=== PATIENT | male | born 1955 | race Caucasian/White ===

== ENCOUNTER 2018-10-30 12:23 | Inpatient (IN) | payer MEDICARE, MEDICAID ==
[~2018-10-30 12:23] MED LIST: AMLO-511 PO; CLON0.1P2 TD; LEVO100T4 PO; QUET100T PO; RISP1 PO; RISP2 PO; TRAZ150T79 PO; VIT500TA PO; ZINC220T PO
[2018-10-30 15:00] VITALS: BP 122/79
[2018-10-30] MEDS ORDERED: HALOPERIDOL 5 MG TABLET PO PRN (15:15)
[2018-10-30] MEDS ORDERED: ZOLPIDEM TARTRATE 10 MG TABLET PO PRN (15:15)
[2018-10-30] MEDS ORDERED: LISI-662 PO (15:42)
[2018-10-30] MEDS ORDERED: CITA-106 PO (15:42)
[2018-10-30] MEDS ORDERED: ARIP5TAB8 PO (15:42)
[2018-10-30] MEDS ORDERED: LEVO125 PO (15:42)
[2018-10-30] MEDS ORDERED: HYDR25TA PO (15:42)
[2018-10-30 21:41] VITALS: BP 127/85
[2018-10-31 00:13] VITALS: BP 125/66
[2018-10-31] MEDS: LEVOTHYROXINE SODIUM 125 MCG TABLET PO SCH (06:53)
[2018-10-31 08:20] VITALS: BP 132/90
[2018-10-31] MEDS: CITALOPRAM HYDROBROMIDE 20 MG TABLET PO SCH (08:58)
[2018-10-31] MEDS: HYDROCHLOROTHIAZIDE 25 MG TABLET PO SCH (08:58)
[2018-10-31] MEDS: LISINOPRIL 20 MG TABLET PO SCH (08:58)
[2018-10-31] MEDS: ARIPiprazole 5 MG TABLET PO SCH (08:58)
[2018-10-31] MEDS ORDERED: SIMETHICONE 80 MG CHEWABLE TABLET CHEW PRN (10:45)
[2018-10-31 16:00] VITALS: BP 135/85
[2018-11-01] MEDS: LEVOTHYROXINE SODIUM 125 MCG TABLET PO SCH (06:41)
[2018-11-01] MEDS: ARIPiprazole 5 MG TABLET PO SCH (08:59)
[2018-11-01] MEDS: CITALOPRAM HYDROBROMIDE 20 MG TABLET PO SCH (08:59)
[2018-11-01] MEDS: HYDROCHLOROTHIAZIDE 25 MG TABLET PO SCH (09:00)
[2018-11-01] MEDS: LISINOPRIL 20 MG TABLET PO SCH (09:00)
[2018-11-01] MEDS ORDERED: IBUPROFEN 600 MG TABLET PO PRN (12:15)
[2018-11-01] MEDS ORDERED: ACETAMINOPHEN 325 MG TABLET PO PRN (12:15)
[2018-11-01 16:15] VITALS: BP 132/81
[2018-11-02 03:01] VITALS: BP 133/85
[2018-11-02] MEDS: LORazepam 2 MG TABLET PO PRN ×2 (04:17→08:27)
[2018-11-02] MEDS: LEVOTHYROXINE SODIUM 125 MCG TABLET PO SCH (06:57)
[2018-11-02] MEDS: LISINOPRIL 20 MG TABLET PO SCH (08:15)
[2018-11-02] MEDS: CITALOPRAM HYDROBROMIDE 20 MG TABLET PO SCH (08:15)
[2018-11-02] MEDS: HYDROCHLOROTHIAZIDE 25 MG TABLET PO SCH (08:15)
[2018-11-02] MEDS: ARIPiprazole 5 MG TABLET PO SCH (08:15)
[2018-11-02 08:20] VITALS: BP 135/83
[2018-11-03] MEDS ORDERED: ASPIRIN 81 MG EC TABLET PO SCH (09:00)
== END 2018-11-02 14:17 | disposition home or self-care (01) | DRG 885 ==
LOC: B2X 15:07
PROVIDERS: ADMIT Psychiatry & Neurology Child & Adolescent Psychiatry; ATTEND Psychiatry & Neurology Psychiatry
DX: F25.0 Schizoaffective disorder, bipolar type (principal); R45.851 Suicidal ideations; E03.9 Hypothyroidism, unspecified; F10.20 Alcohol dependence, uncomplicated; I10 Essential (primary) hypertension; I25.10 Atherosclerotic heart disease of native coronary artery without angina pectoris; L21.9 Seborrheic dermatitis, unspecified; L40.9 Psoriasis, unspecified; F15.10 Other stimulant abuse, uncomplicated; F12.10 Cannabis abuse, uncomplicated; Z59.0 Homelessness; Z80.8 Family history of malignant neoplasm of other organs or systems; Z95.5 Presence of coronary angioplasty implant and graft

== ENCOUNTER 2019-09-23 09:01 | Inpatient (IN) | payer MEDICAID, MEDICARE, OTHER ==
[~2019-09-23] VITALS: Ht 188 cm; Wt 110.0 kg
[~2019-09-23 09:01] MED LIST changes: -AMLO-511 PO; +ARIP5TAB8 PO; +CITA-106 PO; -CLON0.1P2 TD; +HYDR-1475 PO; -LEVO100T4 PO; +LEVO125 PO; +LISI-662 PO; -QUET100T PO; -RISP1 PO; -RISP2 PO; -TRAZ150T79 PO; -VIT500TA PO; -ZINC220T PO
[2019-09-23 09:51] LABS: BASOPHILS % (AUTO) 0.4 % (0.0-2.0); EOSINOPHILS % (AUTO) 0.7 % (1.0-6.0); HEMATOCRIT 41.1 % (41-53); HEMOGLOBIN 14.3 g/dL (13.5-17.5); LYMPHOCYTES # (AUTO) 0.8 K/uL (1.0-4.8); LYMPHOCYTES % (AUTO) 7.8 % (22.0-44.0); MEAN CORPUSCULAR HEMOGLOBIN 31.5 pg (26.0-34.0); MEAN CORPUSCULAR HGB CONC 34.8 G/dL (31.0-37.0); MEAN CORPUSCULAR VOLUME 90 fL (80-100); MONOCYTES # (AUTO) 0.9 K/uL (0.1-1.0); MONOCYTES % (AUTO) 7.9 % (2.0-9.0); NEUTROPHILS % (AUTO) 83.2 % (40.0-70.0); PLATELET COUNT (AUTO) 250 K/uL (150-450); RED BLOOD CELL COUNT(AUTO) 4.55 MIL/uL (4.50-5.90); RED CELL DISTRIBUTION WIDTH 12.6 % (11.5-14.5)
[2019-09-23] MEDS ORDERED: ACETAMINOPHEN 325 MG TABLET PO PRN (10:00)
[2019-09-23 10:01] LABS: ANION GAP 8 mmol/L (8-16); CALCIUM, TOTAL 8.5 mg/dL (8.8-10.5); CARBON DIOXIDE 26 mmol/L (22-29); CHLORIDE 101 mmol/L (98-107); CREATININE 1.27 mg/dL (0.60-1.30); GLOMERULAR FILTR. RATE CALC 57 mL/min (>60); GLUCOSE,RANDOM 82 mg/dL (70-110); POTASSIUM 3.4 mmol/L (3.5-5.1); SODIUM SERUM 135 mmol/L (136-145); UREA NITROGEN, BLOOD 10 mg/dL (7-18)
[2019-09-23 10:06] LABS: ALANINE AMINOTRANSFERASE 28 U/L (12-78); ALBUMIN 3.6 g/dL (3.4-5.0); ALKALINE PHOSPHATASE 71 U/L (46-116); ASPARTATE AMINOTRANSFERASE 46 U/L (15-37); BILIRUBIN,TOTAL 1.3 mg/dL (0.1-1.0); TOTAL PROTEIN, SERUM 6.7 g/dL (6.4-8.2)
[2019-09-23] MEDS ORDERED: POTASSIUM CHLORIDE 10 MEQ ER TABLET PO ONE (11:00)
[2019-09-23] MEDS ORDERED: MAGNESIUM HYDROXIDE SUSPENSION 30 ML UDCUP PO PRN (11:00)
[2019-09-23] MEDS ORDERED: INFLUENZA VIRUS VACCINE QVS 2019-20 (3YR+)/PF 60 MCG/0.5 ML SYRINGE IM ONE (11:45)
[2019-09-23 12:10] LABS: THYROID STIMULATING HORMONE 1.63 uIU/mL (0.36-3.74)
[2019-09-23] MEDS: ASPIRIN 81 MG CHEWABLE TABLET PO SCH (12:30)
[2019-09-23 12:33] LABS: AMPHET/METH SCREEN,URINE NEGATIVE (NEGATIVE); BARBITURATE SCREEN, URINE NEGATIVE (NEGATIVE); BENZODIAZEPINES SCREEN,URINE NEGATIVE (NEGATIVE); CANNABINOID SCREEN,URINE NEGATIVE (NEGATIVE); COCAINE SCREEN,URINE NEGATIVE (NEGATIVE); METHADONE SCREEN, URINE NEGATIVE (NEGATIVE); OPIATE SCREEN,URINE NEGATIVE (NEGATIVE)
[2019-09-23 12:35] LABS: PHENCYCLIDINE SCREEN,URINE NEGATIVE (NEGATIVE)
[2019-09-23 13:26] LABS: AMPHET/METH SCREEN,URINE NEGATIVE (NEGATIVE); BARBITURATE SCREEN, URINE NEGATIVE (NEGATIVE); BENZODIAZEPINES SCREEN,URINE NEGATIVE (NEGATIVE); CANNABINOID SCREEN,URINE NEGATIVE (NEGATIVE); COCAINE SCREEN,URINE NEGATIVE (NEGATIVE); METHADONE SCREEN, URINE NEGATIVE (NEGATIVE); OPIATE SCREEN,URINE NEGATIVE (NEGATIVE); PHENCYCLIDINE SCREEN,URINE NEGATIVE (NEGATIVE)
[2019-09-23 15:04] VITALS: BP 120/75
[2019-09-23] MEDS ORDERED: HALOPERIDOL LACTATE 5 MG/ML VIAL IM ONE (16:15)
[2019-09-23] MEDS ORDERED: DiphenhydrAMINE HCL 50 MG/ML VIAL IM ONE (16:15)
[2019-09-23] MEDS ORDERED: LORazepam 2 MG/ML VIAL IM ONE (16:15)
[2019-09-23] MEDS ORDERED: HALOPERIDOL 5 MG TABLET PO PRN (16:30)
[2019-09-23] MEDS: OLANZapine 5 MG TABLET PO SCH (20:55)
[2019-09-24 05:25] VITALS: BP 125/82
[2019-09-24 07:17] LABS: ANION GAP 8 mmol/L (8-16); CALCIUM, TOTAL 8.4 mg/dL (8.8-10.5); CARBON DIOXIDE 26 mmol/L (22-29); CHLORIDE 105 mmol/L (98-107); CREATININE 1.05 mg/dL (0.60-1.30); GLOMERULAR FILTR. RATE CALC > 60 mL/min (>60); GLUCOSE,RANDOM 70 mg/dL (70-110); POTASSIUM 3.7 mmol/L (3.5-5.1); SODIUM SERUM 139 mmol/L (136-145); UREA NITROGEN, BLOOD 12 mg/dL (7-18)
[2019-09-24 07:25] VITALS: BP 97/66
[2019-09-24] MEDS: CITALOPRAM HYDROBROMIDE 10 MG TABLET PO SCH (09:08)
[2019-09-24] MEDS: FAMOTIDINE 20 MG TABLET PO SCH (09:08)
[2019-09-24] MEDS: ASPIRIN 81 MG CHEWABLE TABLET PO SCH (09:08)
[2019-09-24] MEDS ORDERED: LORazepam 2 MG/ML VIAL IM ONE (15:15)
[2019-09-24] MEDS ORDERED: DiphenhydrAMINE HCL 50 MG/ML VIAL IM ONE (15:15)
[2019-09-24] MEDS ORDERED: HALOPERIDOL LACTATE 5 MG/ML VIAL IM ONE (15:15)
[2019-09-24] MEDS: LEVOTHYROXINE SODIUM 125 MCG TABLET PO SCH (16:42)
[2019-09-24] MEDS: ACETAMINOPHEN 325 MG TABLET PO PRN (16:51)
[2019-09-24] MEDS: OLANZapine 5 MG TABLET PO SCH (21:00)
[2019-09-25] MEDS: OLANZapine 5 MG TABLET PO SCH ×3 (00:43→20:36)
[2019-09-25 07:50] VITALS: BP 120/74
[2019-09-25] MEDS: FAMOTIDINE 20 MG TABLET PO SCH (07:53)
[2019-09-25] MEDS: LEVOTHYROXINE SODIUM 125 MCG TABLET PO SCH (07:53)
[2019-09-25] MEDS: ASPIRIN 81 MG CHEWABLE TABLET PO SCH (07:54)
[2019-09-25] MEDS: CITALOPRAM HYDROBROMIDE 10 MG TABLET PO SCH (07:54)
[2019-09-25 12:00] VITALS: BP 119/56
[2019-09-25 16:17] VITALS: BP 122/68
[2019-09-25] MEDS ORDERED: HALOPERIDOL LACTATE 5 MG/ML VIAL ONE (17:24)
[2019-09-25] MEDS ORDERED: DiphenhydrAMINE HCL 50 MG/ML VIAL ONE (17:25)
[2019-09-25] MEDS ORDERED: LORazepam 2 MG/ML VIAL ONE (17:25)
[2019-09-25] MEDS ORDERED: DiphenhydrAMINE HCL 50 MG/ML VIAL IM ONE (17:30)
[2019-09-25] MEDS ORDERED: LORazepam 2 MG/ML VIAL IM ONE (17:30)
[2019-09-25] MEDS ORDERED: HALOPERIDOL LACTATE 5 MG/ML VIAL IM ONE (17:30)
[2019-09-25 20:42] VITALS: BP 120/79
[2019-09-26] MEDS: LEVOTHYROXINE SODIUM 125 MCG TABLET PO SCH (06:33)
[2019-09-26] MEDS: ASPIRIN 81 MG CHEWABLE TABLET PO SCH (08:19)
[2019-09-26] MEDS: CITALOPRAM HYDROBROMIDE 10 MG TABLET PO SCH (08:19)
[2019-09-26] MEDS: OLANZapine 5 MG TABLET PO SCH (08:19)
[2019-09-26] MEDS: FAMOTIDINE 20 MG TABLET PO SCH (08:19)
[2019-09-26] MEDS: ACETAMINOPHEN 325 MG TABLET PO PRN (08:21)
[2019-09-26] MEDS ORDERED: OLAN5TAB2 PO (12:21)
[2019-09-26 15:43] VITALS: BP 119/67
[2019-09-26] MEDS ORDERED: ASPI-728 PO (15:53)
[2019-09-26] MEDS ORDERED: FAMO20 PO (15:55)
[2019-09-26] MEDS ORDERED: CITA10TA68 PO (15:55)
== END 2019-09-26 18:15 | DRG 885 ==
LOC: EMS 09:04 → 6S 10:19
PROVIDERS: ADMIT Internal Medicine; ATTEND Internal Medicine
DX: F31.64 Bipolar disorder, current episode mixed, severe, with psychotic features (principal); F19.10 Other psychoactive substance abuse, uncomplicated; F17.210 Nicotine dependence, cigarettes, uncomplicated; F15.90 Other stimulant use, unspecified, uncomplicated; F12.90 Cannabis use, unspecified, uncomplicated; I25.10 Atherosclerotic heart disease of native coronary artery without angina pectoris; E03.9 Hypothyroidism, unspecified; I10 Essential (primary) hypertension; B35.1 Tinea unguium; E87.6 Hypokalemia; Z59.0 Homelessness; Z28.21 Immunization not carried out because of patient refusal
CPT/HCPCS: 80307; 84443; 96372; G0480; J1200; J1630; J2060

== ENCOUNTER 2019-10-03 11:53 | Inpatient (IN) | payer OTHER ==
[~2019-10-03] VITALS: Ht 177.8 cm; Wt 81.8 kg
[~2019-10-03 11:53] MED LIST changes: -ARIP5TAB8 PO; +ASPI-728 PO; -CITA-106 PO; +CITA10TA68 PO; +FAMO20 PO; -HYDR-1475 PO; -LISI-662 PO; +OLAN5TAB2 PO
[2019-10-03] MEDS ORDERED: DiphenhydrAMINE HCL 50 MG/ML VIAL IM ONE (12:00)
[2019-10-03] MEDS ORDERED: LORazepam 2 MG/ML VIAL IM ONE (12:00)
[2019-10-03] MEDS ORDERED: HALOPERIDOL LACTATE 5 MG/ML VIAL IM ONE (12:00)
[2019-10-03] MEDS ORDERED: HYDR-1475 PO (12:11)
[2019-10-03] MEDS ORDERED: IBUP-2070 PO (12:11)
[2019-10-03] MEDS ORDERED: LISI-662 PO (12:11)
[2019-10-03 12:33] LABS: BASOPHILS % (AUTO) 0.2 % (0.0-2.0); EOSINOPHILS % (AUTO) 0.1 % (1.0-6.0); HEMATOCRIT 45.5 % (41-53); HEMOGLOBIN 15.2 g/dL (13.5-17.5); LYMPHOCYTES # (AUTO) 0.5 K/uL (1.0-4.8); LYMPHOCYTES % (AUTO) 3.5 % (22.0-44.0); MEAN CORPUSCULAR HEMOGLOBIN 30.5 pg (26.0-34.0); MEAN CORPUSCULAR HGB CONC 33.5 G/dL (31.0-37.0); MEAN CORPUSCULAR VOLUME 91 fL (80-100); MONOCYTES # (AUTO) 0.7 K/uL (0.1-1.0); MONOCYTES % (AUTO) 5.4 % (2.0-9.0); NEUTROPHILS # (AUTO) 12.4 K/uL (1.8-7.7); PLATELET COUNT (AUTO) 294 K/uL (150-450); RED BLOOD CELL COUNT(AUTO) 4.99 MIL/uL (4.50-5.90); RED CELL DISTRIBUTION WIDTH 12.6 % (11.5-14.5)
[2019-10-03 12:37] LABS: NEUTROPHILS % (AUTO) 90.8 % (40.0-70.0)
[2019-10-03 13:02] LABS: ALANINE AMINOTRANSFERASE 36 U/L (12-78); ALBUMIN 3.8 g/dL (3.4-5.0); ALKALINE PHOSPHATASE 76 U/L (46-116); ANION GAP 18 mmol/L (8-16); ASPARTATE AMINOTRANSFERASE 43 U/L (15-37); BILIRUBIN,TOTAL 2.2 mg/dL (0.1-1.0); CALCIUM, TOTAL 9.1 mg/dL (8.8-10.5); CARBON DIOXIDE 17 mmol/L (22-29); CHLORIDE 96 mmol/L (98-107); GLUCOSE,RANDOM 85 mg/dL (70-110); SODIUM SERUM 131 mmol/L (136-145); TOTAL PROTEIN, SERUM 7.6 g/dL (6.4-8.2); UREA NITROGEN, BLOOD 20 mg/dL (7-18)
[2019-10-03 13:13] LABS: CREATININE 1.62 mg/dL (0.60-1.30); GLOMERULAR FILTR. RATE CALC 43 mL/min (>60)
[2019-10-03] MEDS ORDERED: ACETAMINOPHEN 325 MG TABLET PO PRN (13:30)
[2019-10-03] MEDS ORDERED: 0.9% SODIUM CHLORIDE 10 ML SYRINGE IVP PRN ×2 (13:30→22:00)
[2019-10-03 16:29] VITALS: BP 131/87
[2019-10-03] MEDS ORDERED: ONDANSETRON HCL 4 MG/2 ML VIAL IVP PRN (22:00)
[2019-10-03] MEDS ORDERED: ZOLPIDEM TARTRATE 5 MG TABLET PO PRN (22:00)
[2019-10-03] MEDS ORDERED: MAGNESIUM SULFATE 2 GM/WATER 50 ML IV PRN (22:00)
[2019-10-03] MEDS: OLANZapine 10 MG TABLET PO SCH (22:00)
[2019-10-03] MEDS ORDERED: POTASSIUM CHLORIDE 20 MEQ ER TABLET PO PRN (22:00)
[2019-10-03] MEDS ORDERED: POTASSIUM CHL 10 MEQ/WATER 50 ML IV PRN (22:00)
[2019-10-03] MEDS ORDERED: DEXTROSE 50%-WATER 25 GM/50 ML SYRINGE IVP PRN (22:00)
[2019-10-03] MEDS ORDERED: MAGNESIUM SULFATE 4 GM/WATER 100 ML IV PRN (22:00)
[2019-10-03] MEDS ORDERED: MAGNESIUM OXIDE 400 MG TABLET PO PRN (22:00)
[2019-10-03] MEDS: HEPARIN SODIUM,PORCINE 5,000 UNITS/ML VIAL SQ SCH (23:10)
[2019-10-04 05:12] VITALS: BP 123/78
[2019-10-04] MEDS: LEVOTHYROXINE SODIUM 125 MCG TABLET PO SCH (06:41)
[2019-10-04] MEDS: IBUPROFEN 600 MG TABLET PO PRN (07:04)
[2019-10-04 07:40] LABS: GLUCOMETER DEV NAME(LOC) 6S.1; GLUCOSE,POINT OF CARE 79 MG/DL (70-110)
[2019-10-04 07:44] VITALS: BP 157/84
[2019-10-04] MEDS: HEPARIN SODIUM,PORCINE 5,000 UNITS/ML VIAL SQ SCH ×3 (08:00→23:24)
[2019-10-04] MEDS: HYDROCHLOROTHIAZIDE 25 MG TABLET PO SCH (09:00)
[2019-10-04] MEDS: ASPIRIN 81 MG CHEWABLE TABLET PO SCH (09:00)
[2019-10-04] MEDS: PANTOPRAZOLE SODIUM 40 MG DR TABLET PO SCH (09:00)
[2019-10-04] MEDS: LISINOPRIL 20 MG TABLET PO SCH (09:00)
[2019-10-04] MEDS: DOCUSATE SODIUM 100 MG CAPSULE PO SCH ×2 (09:00→20:35)
[2019-10-04 19:39] VITALS: BP 120/63
[2019-10-04] MEDS: OLANZapine 10 MG TABLET PO SCH (20:35)
[2019-10-04 20:52] LABS: GLUCOMETER DEV NAME(LOC) 6S.1; GLUCOSE,POINT OF CARE 128 MG/DL (70-110)
[2019-10-04 20:52] LABS: GLUCOMETER DEV NAME(LOC) 6S.1; GLUCOSE,POINT OF CARE 88 MG/DL (70-110)
[2019-10-05 03:54] VITALS: BP 120/78
[2019-10-05] MEDS: LEVOTHYROXINE SODIUM 125 MCG TABLET PO SCH (06:41)
[2019-10-05 06:59] LABS: GLUCOMETER DEV NAME(LOC) 6N.2; GLUCOSE,POINT OF CARE 96 MG/DL (70-110)
[2019-10-05 07:12] LABS: AMPHET/METH SCREEN,URINE NEGATIVE (NEGATIVE); BARBITURATE SCREEN, URINE NEGATIVE (NEGATIVE); BENZODIAZEPINES SCREEN,URINE NEGATIVE (NEGATIVE); CANNABINOID SCREEN,URINE NEGATIVE (NEGATIVE); COCAINE SCREEN,URINE NEGATIVE (NEGATIVE); METHADONE SCREEN, URINE NEGATIVE (NEGATIVE); OPIATE SCREEN,URINE NEGATIVE (NEGATIVE)
[2019-10-05 07:22] LABS: PHENCYCLIDINE SCREEN,URINE NEGATIVE (NEGATIVE)
[2019-10-05] MEDS: HEPARIN SODIUM,PORCINE 5,000 UNITS/ML VIAL SQ SCH ×2 (08:00→16:00)
[2019-10-05 08:25] VITALS: BP 119/69
[2019-10-05] MEDS: ASPIRIN 81 MG CHEWABLE TABLET PO SCH (08:30)
[2019-10-05] MEDS: HYDROCHLOROTHIAZIDE 25 MG TABLET PO SCH (08:30)
[2019-10-05] MEDS: PANTOPRAZOLE SODIUM 40 MG DR TABLET PO SCH (08:30)
[2019-10-05] MEDS: LISINOPRIL 20 MG TABLET PO SCH (08:30)
[2019-10-05] MEDS: DOCUSATE SODIUM 100 MG CAPSULE PO SCH ×2 (08:34→21:00)
[2019-10-05] MEDS: INSULIN LISPRO 100 UNITS/ML SQ PRN ×2 (11:45→18:08)
[2019-10-05 11:59] LABS: GLUCOMETER DEV NAME(LOC) 6N.2; GLUCOSE,POINT OF CARE 121 MG/DL (70-110)
[2019-10-05] MEDS ORDERED: LORazepam 2 MG/ML VIAL ONE (16:08)
[2019-10-05] MEDS ORDERED: HALOPERIDOL LACTATE 5 MG/ML VIAL ONE (16:08)
[2019-10-05] MEDS ORDERED: DiphenhydrAMINE HCL 50 MG/ML VIAL ONE (16:08)
[2019-10-05] MEDS ORDERED: OLAN10TA3 PO (16:14)
[2019-10-05] MEDS ORDERED: HALOPERIDOL LACTATE 5 MG/ML VIAL IM ONE (16:15)
[2019-10-05] MEDS ORDERED: DiphenhydrAMINE HCL 50 MG/ML VIAL IM ONE (16:15)
[2019-10-05] MEDS ORDERED: LORazepam 2 MG/ML VIAL IM ONE (16:15)
[2019-10-05] MEDS: OLANZapine 10 MG TABLET PO SCH (21:00)
[2019-10-05] MEDS: ACETAMINOPHEN 325 MG TABLET PO PRN (23:03)
[2019-10-06 01:10] VITALS: BP 130/82
[2019-10-06] MEDS: HEPARIN SODIUM,PORCINE 5,000 UNITS/ML VIAL SQ SCH ×2 (08:00)
[2019-10-06] MEDS: PANTOPRAZOLE SODIUM 40 MG DR TABLET PO SCH (08:12)
[2019-10-06] MEDS: ACETAMINOPHEN 325 MG TABLET PO PRN (08:12)
[2019-10-06] MEDS: LISINOPRIL 20 MG TABLET PO SCH (08:12)
[2019-10-06] MEDS: HYDROCHLOROTHIAZIDE 25 MG TABLET PO SCH (08:13)
[2019-10-06] MEDS: ASPIRIN 81 MG CHEWABLE TABLET PO SCH (08:13)
[2019-10-06] MEDS: LEVOTHYROXINE SODIUM 125 MCG TABLET PO SCH (08:13)
[2019-10-06] MEDS: DOCUSATE SODIUM 100 MG CAPSULE PO SCH (08:14)
[2019-10-06] MEDS ORDERED: PANT40TA25 PO (09:52)
[2019-10-06] MEDS: IBUPROFEN 600 MG TABLET PO PRN (10:53)
== END 2019-10-06 13:30 | DRG 885 ==
LOC: EMS 11:54 → 6S 14:08
PROVIDERS: ADMIT Hospitalist; ATTEND Hospitalist
DX: F31.64 Bipolar disorder, current episode mixed, severe, with psychotic features (principal); E03.9 Hypothyroidism, unspecified; I10 Essential (primary) hypertension; I25.10 Atherosclerotic heart disease of native coronary artery without angina pectoris; F17.210 Nicotine dependence, cigarettes, uncomplicated; F10.20 Alcohol dependence, uncomplicated; L40.9 Psoriasis, unspecified; F12.90 Cannabis use, unspecified, uncomplicated; Z59.0 Homelessness
CPT/HCPCS: 71101; 96372; 99291; G0480; J1200; J1630; J1644; J2060

== ENCOUNTER 2019-10-15 18:21 | Inpatient (IN) | payer OTHER ==
[~2019-10-15] VITALS: Ht 190.5 cm; Wt 107.5 kg
[~2019-10-15 18:21] MED LIST changes: -CITA10TA68 PO; -FAMO20 PO; +HYDR-1475 PO; +IBUP-2070 PO; +LISI-662 PO; +OLAN10TA3 PO; -OLAN5TAB2 PO; +PANT40TA25 PO
[2019-10-15 18:42] LABS: BASOPHILS % (AUTO) 0.4 % (0.0-2.0); EOSINOPHILS % (AUTO) 7.9 % (1.0-6.0); HEMATOCRIT 41.7 % (41-53); HEMOGLOBIN 14.2 g/dL (13.5-17.5); LYMPHOCYTES # (AUTO) 1.1 K/uL (1.0-4.8); LYMPHOCYTES % (AUTO) 10.5 % (22.0-44.0); MEAN CORPUSCULAR HEMOGLOBIN 30.3 pg (26.0-34.0); MEAN CORPUSCULAR VOLUME 89 fL (80-100); MONOCYTES # (AUTO) 0.8 K/uL (0.1-1.0); MONOCYTES % (AUTO) 8.1 % (2.0-9.0); NEUTROPHILS # (AUTO) 7.4 K/uL (1.8-7.7); NEUTROPHILS % (AUTO) 73.1 % (40.0-70.0); PLATELET COUNT (AUTO) 433 K/uL (150-450); RED BLOOD CELL COUNT(AUTO) 4.67 MIL/uL (4.50-5.90); RED CELL DISTRIBUTION WIDTH 12.7 % (11.5-14.5)
[2019-10-15 18:51] LABS: ANION GAP 10 mmol/L (8-16); CALCIUM, TOTAL 9.4 mg/dL (8.8-10.5); CARBON DIOXIDE 27 mmol/L (22-29); CHLORIDE 105 mmol/L (98-107); CREATININE 1.46 mg/dL (0.60-1.30); GLOMERULAR FILTR. RATE CALC 49 mL/min (>60); GLUCOSE,RANDOM 104 mg/dL (70-110); POTASSIUM 4.2 mmol/L (3.5-5.1); SODIUM SERUM 142 mmol/L (136-145); UREA NITROGEN, BLOOD 15 mg/dL (7-18)
[2019-10-15 18:57] LABS: ALANINE AMINOTRANSFERASE 29 U/L (12-78); ALBUMIN 3.4 g/dL (3.4-5.0); ASPARTATE AMINOTRANSFERASE 34 U/L (15-37); BILIRUBIN,TOTAL 0.6 mg/dL (0.1-1.0); TOTAL PROTEIN, SERUM 7.4 g/dL (6.4-8.2)
[2019-10-15 19:18] LABS: ALKALINE PHOSPHATASE 88 U/L (46-116)
[2019-10-15] MEDS ORDERED: CIPROFLOXACIN HCL 0.2%/HYDROCORT 1% 10 ML OTIC SUSPENSION AS ONE (20:15)
[2019-10-15] MEDS ORDERED: ONDANSETRON HCL 4 MG/2 ML VIAL IVP PRN ×2 (21:00→23:15)
[2019-10-15] MEDS ORDERED: ACETAMINOPHEN 325 MG TABLET PO PRN ×2 (21:00→23:15)
[2019-10-15] MEDS ORDERED: 0.9% SODIUM CHLORIDE 10 ML SYRINGE IVP PRN (21:00)
[2019-10-15 21:30] VITALS: BP 123/78
[2019-10-15 21:33] LABS: AMPHET/METH SCREEN,URINE NEGATIVE (NEGATIVE); BARBITURATE SCREEN, URINE NEGATIVE (NEGATIVE); BENZODIAZEPINES SCREEN,URINE NEGATIVE (NEGATIVE); CANNABINOID SCREEN,URINE NEGATIVE (NEGATIVE); COCAINE SCREEN,URINE NEGATIVE (NEGATIVE); METHADONE SCREEN, URINE NEGATIVE (NEGATIVE); OPIATE SCREEN,URINE NEGATIVE (NEGATIVE); PHENCYCLIDINE SCREEN,URINE NEGATIVE (NEGATIVE)
[2019-10-15] MEDS ORDERED: IBUPROFEN 600 MG TABLET PO PRN (23:15)
[2019-10-15] MEDS ORDERED: ZOLPIDEM TARTRATE 5 MG TABLET PO PRN (23:15)
[2019-10-15] MEDS ORDERED: MAGNESIUM HYDROXIDE SUSPENSION 30 ML UDCUP PO PRN (23:15)
[2019-10-15] MEDS ORDERED: BISACODYL 10 MG RECTAL RECTAL SUPPOSITORY PR PRN (23:15)
[2019-10-16] MEDS: HEPARIN SODIUM,PORCINE 5,000 UNITS/ML VIAL SQ SCH ×4 (00:54→16:00)
[2019-10-16] MEDS ORDERED: INFLUENZA VIRUS VACCINE QVS 2019-20 (3YR+)/PF 60 MCG/0.5 ML SYRINGE IM ONE (04:45)
[2019-10-16] MEDS: LEVOTHYROXINE SODIUM 125 MCG TABLET PO SCH (05:02)
[2019-10-16 05:05] VITALS: BP 109/69
[2019-10-16] MEDS ORDERED: IBUPROFEN 400 MG TABLET PO PRN (06:15)
[2019-10-16 07:13] LABS: BASOPHILS % (AUTO) 0.8 % (0.0-2.0); EOSINOPHILS % (AUTO) 10.3 % (1.0-6.0); HEMATOCRIT 38.6 % (41-53); HEMOGLOBIN 13.1 g/dL (13.5-17.5); LYMPHOCYTES # (AUTO) 1.1 K/uL (1.0-4.8); LYMPHOCYTES % (AUTO) 13.4 % (22.0-44.0); MEAN CORPUSCULAR HEMOGLOBIN 30.2 pg (26.0-34.0); MEAN CORPUSCULAR HGB CONC 33.9 G/dL (31.0-37.0); MEAN CORPUSCULAR VOLUME 89 fL (80-100); MONOCYTES # (AUTO) 0.8 K/uL (0.1-1.0); MONOCYTES % (AUTO) 9.5 % (2.0-9.0); NEUTROPHILS # (AUTO) 5.7 K/uL (1.8-7.7); PLATELET COUNT (AUTO) 387 K/uL (150-450); RED BLOOD CELL COUNT(AUTO) 4.34 MIL/uL (4.50-5.90); RED CELL DISTRIBUTION WIDTH 12.7 % (11.5-14.5)
[2019-10-16 07:22] VITALS: BP 118/75
[2019-10-16 07:40] LABS: ALANINE AMINOTRANSFERASE 21 U/L (12-78); ALBUMIN 2.9 g/dL (3.4-5.0); ALKALINE PHOSPHATASE 71 U/L (46-116); ANION GAP 7 mmol/L (8-16); ASPARTATE AMINOTRANSFERASE 27 U/L (15-37); BILIRUBIN,TOTAL 0.7 mg/dL (0.1-1.0); CALCIUM, TOTAL 8.7 mg/dL (8.8-10.5); CARBON DIOXIDE 28 mmol/L (22-29); CHLORIDE 103 mmol/L (98-107); CREATININE 1.13 mg/dL (0.60-1.30); GLOMERULAR FILTR. RATE CALC > 60 mL/min (>60); GLUCOSE,RANDOM 95 mg/dL (70-110); POTASSIUM 3.8 mmol/L (3.5-5.1); SODIUM SERUM 138 mmol/L (136-145); TOTAL PROTEIN, SERUM 6.5 g/dL (6.4-8.2); UREA NITROGEN, BLOOD 11 mg/dL (7-18)
[2019-10-16] MEDS ORDERED: HYDROCHLOROTHIAZIDE 25 MG TABLET PO SCH (09:00)
[2019-10-16] MEDS: ASPIRIN 81 MG CHEWABLE TABLET PO SCH (09:10)
[2019-10-16] MEDS: DOCUSATE SODIUM 100 MG CAPSULE PO SCH ×2 (09:10→21:17)
[2019-10-16] MEDS: PANTOPRAZOLE SODIUM 40 MG DR TABLET PO SCH (09:11)
[2019-10-16] MEDS: LISINOPRIL 20 MG TABLET PO SCH (09:11)
[2019-10-16] MEDS: CLOTRIMAZOLE 1% 10 ML SOLUTION TP SCH ×2 (10:00→21:16)
[2019-10-16] MEDS ORDERED: IBUP-2071 PO (10:48)
[2019-10-16] MEDS: IBUPROFEN 400 MG TABLET PO PRN (15:00)
[2019-10-16 15:46] VITALS: BP 122/86
[2019-10-16 20:26] VITALS: BP 137/85
[2019-10-16] MEDS ORDERED: OLANZapine 10 MG TABLET PO SCH (21:00)
[2019-10-17 05:30] VITALS: BP 131/82
[2019-10-17] MEDS: LEVOTHYROXINE SODIUM 125 MCG TABLET PO SCH (06:08)
[2019-10-17] MEDS: HEPARIN SODIUM,PORCINE 5,000 UNITS/ML VIAL SQ SCH ×3 (08:00→16:00)
[2019-10-17 08:10] VITALS: BP 142/76
[2019-10-17] MEDS: DOCUSATE SODIUM 100 MG CAPSULE PO SCH (08:49)
[2019-10-17] MEDS: ASPIRIN 81 MG CHEWABLE TABLET PO SCH (08:49)
[2019-10-17] MEDS: LISINOPRIL 20 MG TABLET PO SCH (08:49)
[2019-10-17] MEDS: PANTOPRAZOLE SODIUM 40 MG DR TABLET PO SCH (08:49)
[2019-10-17] MEDS: CLOTRIMAZOLE 1% 10 ML SOLUTION TP SCH (08:54)
[2019-10-17] MEDS ORDERED: CLOT113C TP (14:00)
[2019-10-17] MEDS: IBUPROFEN 400 MG TABLET PO PRN (14:07)
[2019-10-17 14:58] VITALS: BP 114/73
== END 2019-10-17 16:20 | DRG 885 ==
LOC: EMS 18:22 → 6S 20:30
PROVIDERS: ADMIT Internal Medicine; ATTEND Internal Medicine
DX: F29 Unspecified psychosis not due to a substance or known physiological condition (principal); E03.9 Hypothyroidism, unspecified; K21.9 Gastro-esophageal reflux disease without esophagitis; L40.9 Psoriasis, unspecified; B35.3 Tinea pedis; I10 Essential (primary) hypertension; F31.9 Bipolar disorder, unspecified; I25.10 Atherosclerotic heart disease of native coronary artery without angina pectoris; F12.90 Cannabis use, unspecified, uncomplicated; F41.9 Anxiety disorder, unspecified; Z59.0 Homelessness
CPT/HCPCS: 84443; G0480; J1644